=== PATIENT | female | born 1975 ===

== ENCOUNTER 2020-03-05 12:12 | Outpatient (NON) | payer OTHER, SELFPAY ==
[2020-03-05 21:33] LABS: SARS-CoV-2 RNA PCR Negative
== END 2020-03-05 12:13 ==
PROVIDERS: PCP Family Medicine; Visit Provider Nurse Practitioner Family
DX: R68.89 Other general symptoms and signs (principal); Z20.828 Contact with and (suspected) exposure to other viral communicable diseases
CPT/HCPCS: 87635; C9803; U0003

== ENCOUNTER → 2022-12-19 15:28 | Outpatient (CLI) | payer BC, SELFPAY ==
--- NOTE | ~2022-12-19 | US_ITS ---
EXAMINATION: US pelvic complete w TV DATE: 12/19/2022 15:56 INDICATION: Left ovarian cysts. Comparison:Ultrasound dated 07/19/2018 TECHNIQUE: Multiple transabdominal and endovaginal sonographic images of the pelvis performed. FINDINGS: The uterus measures 11.1 x 6.3 x 4.8 cm. IUD present in the endometrium. The endometrial co mplex measures 5 mm. The right ovary measures 2.8 x 2.8 x 3.6 cm and the left ovary measures 2.4 x 1.7 x 1.6 cm. There is a simple right ovarian cyst measuring 3.1 cm. There are small follicles in each ovary. Normal doppler signal in both ovaries. There is no free fluid in the pelvis. There are no abnormal masses seen on either side. IMPRESSION: 1. Simple cyst of the right ovary measuring 3.1 cm. 2: Enlarged uterus. IUD present in the endometrium. Reviewed, dictated and finalized at location A.
== END ==
PROVIDERS: PCP Hospitalist; Visit Provider Nurse Practitioner
DX: N83.202 Unspecified ovarian cyst, left side (principal); N83.201 Unspecified ovarian cyst, right side; Z97.5 Presence of (intrauterine) contraceptive device
CPT/HCPCS: 76830; 76856